=== PATIENT | female | born 1985 | race Caucasian/White ===

== ENCOUNTER → 2018-08-14 10:00 | Outpatient (CLI) | payer OTHER, SELFPAY ==
[2018-08-17 14:07] LABS: HPV Reflexed? NOT INDICATED
== END ==
PROVIDERS: Family Provider Physician Assistant; PCP Physician Assistant; Referring Provider Obstetrics & Gynecology; Visit Provider Obstetrics & Gynecology
DX: Z12.4 Encounter for screening for malignant neoplasm of cervix (principal)
CPT/HCPCS: 87624; 88175; G0145

== ENCOUNTER → 2020-08-24 09:10 | Outpatient (CLI) | payer OTHER, SELFPAY ==
[2020-08-30 16:46] LABS: HPV Reflexed? NOT INDICATED
== END ==
PROVIDERS: PCP Physician Assistant; Visit Provider Obstetrics & Gynecology
DX: Z01.419 Encounter for gynecological examination (general) (routine) without abnormal findings (principal); Z12.4 Encounter for screening for malignant neoplasm of cervix
CPT/HCPCS: 88175; G0145

== ENCOUNTER → 2023-03-26 | Outpatient (CLI) | payer OTHER, SELFPAY ==
[2023-03-26 11:58] LABS: Hematocrit 39.8 % (37-47); Hemoglobin 13.5 g/dL (12.0-15.0); Mean Corp Hgb Conc 33.9 g/dL (32-36); Mean Corpuscular Hgb 31.7 pg (27.0-32.0); Mean Corpuscular Volume 93.4 fL (81-99); Mean Platelet Vol. 9.3 fl (6.2-12.0); Platelet Count 338 K/mm3 (150-450); RBC Distribution Width CV 12.5 % (11.6-14.6); Red Blood Count 4.26 M/mm3 (4.2-5.4)
[2023-03-26 12:36] LABS: Progesterone Level 0.24 ng/mL (See Comment)
[2023-03-26 12:47] LABS: Follicle Stimulating Hormone 7.3 mIU/mL; Luteinizing Hormone 5.2 mIU/mL; T4 Free Direct 0.85 ng/dL (0.76-1.46); Thyroid Stim Hormone (TSH) 1.72 uIU/mL (0.358-3.74)
== END | disposition home or self-care (01) ==
LOC: WOBLAB 11:26
PROVIDERS: PCP Physician Assistant; Visit Provider Student in an Organized Health Care Education/Training Program
DX: N93.9 Abnormal uterine and vaginal bleeding, unspecified (principal)
CPT/HCPCS: 36415; 82670; 83001; 83002; 84144; 84146; 84439; 84443; 85027

== ENCOUNTER → 2023-03-27 | Outpatient (CLI) | payer OTHER, SELFPAY ==
--- NOTE | 2023-03-27 14:15 | EMB_PTH ---
PATIENT: MIKE MUÑIZ LOC: [facility] U#:[id number] AGE/SX: 38/F ROOM: RE03/27/[address]: Dr. Elana Kaur DO : 1985 BED: DIS: 03/27/2023 SPEC #: [id number] RECD: 03/28/23 08:39 STATUS: AGUSTIN REQ #: [id number] CATA: 03/27/23 14:[address]: Elana Kaur DEPT: SURGICAL PATHOLOGY RECD BY: Peace Silva ENTERED: 03/28/23 08:39 SP TYPE: ENDOM BX/C ERVIN DR: DONALD Rico Tissues: Endometrium, NOS Procedures: Surgery Specimen Level IV HEADER OPERATION: Endometrial biopsy PRE-OP DIAGNOSIS: Abnormal uterine bleeding N93.9 TISSUE SUBMITTED: Endometrial biopsy MICROSCOPIC DIAGNOSIS Endometrium, biopsy: Proliferative endometrium with focal glandular breakdown. AM:abhay 03/29/2023 MICROSCOPIC DESCRIPTION Slides are reviewed. GROSS DESCRIPTION Received in fixative is one container labeled with the patient's name and designated EMB. The specimen consists of multiple fragments of hemorrhagic mucoid tissue that in aggregate measure 1.5 x 1.5 x 0.2 cm. The specimen is totally submitted in one cassette. / SJ:abhay 03/28/2023 TC:5 CPT: 62068
== END | disposition home or self-care (01) ==
LOC: LABSPEC 14:27
PROVIDERS: PCP Physician Assistant; Visit Provider Student in an Organized Health Care Education/Training Program
DX: N93.9 Abnormal uterine and vaginal bleeding, unspecified (principal)
CPT/HCPCS: 88305

== ENCOUNTER → 2023-04-13 | Outpatient (CLI) | payer OTHER, SELFPAY ==
[2023-04-18 18:08] LABS: HPV APTIMA, High Risk Negative (Negative)
== END | disposition home or self-care (01) ==
LOC: LABSPEC 04-16 08:42
PROVIDERS: PCP Physician Assistant; Visit Provider Student in an Organized Health Care Education/Training Program
DX: N93.9 Abnormal uterine and vaginal bleeding, unspecified (principal)
CPT/HCPCS: 87624; 88175; G0145

== ENCOUNTER 2023-04-19 08:59 | Day surgery (SDC) | payer OTHER, SELFPAY ==
[2023-04-19] VITALS (7 sets, daily range): BP systolic 104–123; BP diastolic 58–77; PULSE 55–66; RESP 16; TEMP 36.1–36.8; O2SAT 98–100; BMI 22.9
--- NOTE | 2023-04-19 07:11 | PCM.HP.BLA ---
History and Physical Date of Admission: 04/19/23 HPI: 38-year-old female plan for hysteroscopy, dilation and curettage, endometrial ablation for abnormal uterine bleeding. Denies headache or vision changes, chest pain or shortness of breath, nausea or vomiting, diarrhea or constipation, fevers or chills. 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 Back surgery L5 2. LEEP Medications: denies Allergies: No known drug allergies Family history: Noncontributory Social history: Denies tobacco, alcohol, drug use Review of system: Negative otherwise stated above Physical exam: Blood pressure 108/58, HR 60, RR 16, Temp 98.2F, O2 saturation 99% on RA General: No acute distress HEENT: Normal cephalic/a traumatic, PERRLA Cardio: Regular rate and rhythm, no murmurs rubs or gallops Respiratory: No increased effort, clear to auscultation bilaterally Abdomen: Soft, nontender, nondistended Extremities: No edema Neurologic: Cranial nerves II through XII grossly intact, no focal deficits Musculoskeletal: Moves all extremities equally Assessment/plan: 38-year-old female plan for hysteroscopy, dilation and curettage, endometrial ablation for abnormal uterine bleeding. All risk, benefits, alternatives discussed with patient. Risk include but are not limited to: Risk of bleeding to the point of transfusion, infection, injury to surrounding tissue including bowel/bladder potentially requiring prolonged Fernandez catheter use/major abdominal vessels, VTE, ICU admission. Patient aware and consented. Partner has had vasectomy. Patient aware that it is not recommended to become after ablation due to risks of to fetus and mother related to abnormal placentation.
[2023-04-19 09:45] LABS: Internal QC Validated? YES +Cl - CLEAR BKGD; Pregnancy, Urine Negative Negative
[2023-04-19] MEDS: Lactated Ringers 1,000 ML 15 ML IV (10:00)
[2023-04-19 10:21] LABS: Hematocrit 39.6 % (37-47); Hemoglobin 13.3 g/dL (12.0-15.0); Mean Corp Hgb Conc 33.6 g/dL (32-36); Mean Corpuscular Hgb 31.4 pg (27.0-32.0); Mean Corpuscular Volume 93.6 fL (81-99); Mean Platelet Vol. 9.4 fl (6.2-12.0); Platelet Count 335 K/mm3 (150-450); RBC Distribution Width CV 12.1 % (11.6-14.6); RBC Distribution Width SD 41.8 fl (35.1-43.9); Red Blood Count 4.23 M/mm3 (4.2-5.4); White Blood Count 8.2 K/mm3 (4.4-11.0)
--- NOTE | 2023-04-19 10:40 | EMB_PTH ---
PATIENT: MIKE MUÑIZ LOC: [facility] U#:[id number] AGE/SX: 38/F ROOM: RE04/19/[address]: Dr. Elana Kaur DO : 1985 BED: DIS: 04/19/2023 SPEC #: [id number] RECD: 04/19/23 16:44 STATUS: AGUSTIN REQ #: [id number] CATA: 04/19/23 10:[address]: Elana Kaur DEPT: SURGICAL PATHOLOGY RECD BY: Peace Silva ENTERED: 04/20/23 07:46 SP TYPE: ENDOM BX/C ERVIN DR: DONALD Rico Tissues: Endometrium, NOS Procedures: Surgery Specimen Level IV HEADER OPERATION: Hysteroscopy, D & C Adriana PRE-OP DIAGNOSIS: Abnormal uterine bleeding TISSUE SUBMITTED: Endometrial curettings MICROSCOPIC DIAGNOSIS Endometrium, curettings: Secretory endometrium. AM:abhay 04/23/2023 MICROSCOPIC DESCRIPTION Slides are reviewed. GROSS DESCRIPTION Received in fixative is one container labeled with the patient's name and designated endometrial curettings. The specimen consists of multiple irregular fragments of light reddy soft tissue that in aggregate measure 3.0 x 2.5 x 0.3 cm. The specimen is totally submitted in one cassette. / SJ:abhay 04/20/2023 TC:5 CPT: 22206
--- NOTE | 2023-04-19 10:51 | PCM.OPRPT ---
Report of Operation Date of Procedure: 04/19/23 Pre-Operative Diagnosis: Abnormal uterine bleeding Post-Operative Diagnosis: Abnormal uterine bleeding Surgery/Procedure Performed:: Hysteroscopy, dilation curettage, endometrial ablation with Adriana Description of Surgical Findings:: Normal-appearing external genitalia. Normal-appearing cervix. Thickened endometrial lining without polyps or fibroids. Surgeon: Elana Kaur Type of Anesthesia: MAC Specimen's removed: Endometrial curettings Estimated Blood Loss (mL): 5 cc Fluids Replaced: 800 cc Description of Procedure: Indication/risk/benefits: 38-year-old female plan for hysteroscopy, dilation and curettage, endometrial ablation for abnormal uterine bleeding. All risk, benefits, alternatives discussed with patient. Risk include but are not limited to: Risk of bleeding to the point of transfusion, infection, injury to surrounding tissue including bowel/bladder potentially requiring prolonged Fernandez catheter use/major abdominal vessels, VTE, ICU admission. Patient aware and consented. Partner has had vasectomy. Patient aware that it is not recommended to become after ablation due to risks of to fetus and mother related to abnormal placentatio Procedure: Patient taken to the operating room MAC anesthesia induced. Patient placed in the dorsal lithotomy position prepped and draped in the usual sterile fashion. Weighted speculum placed in posterior vagina and Rivas retractor used anteriorly to visualize cervix. Anterior lip of the cervix grasped with Allis clamp. Cervix sequentially dilated. Hysteroscopy completed. Hysteroscope placed through the cervical canal and inspection of the endometrial cavity completed with findings noted above. Endometrial curettage completed in a 360 degree manner. Cavity length 5 cm. Adriana device opened and placed. Passed cavity assessments. Error code 006 with the first Adriana device, and again after removing and replacing. New device received and placed. Same error code. Adriana rep discussed with supervisor [employer], cavity length then set to 4.5 cm, passed all cavity assessments. Ablation completed. Device removed. Allis clamp removed. Cervix hemostatic. Weighted speculum removed. At the end of the procedure all needle, lap, sponge counts were correct. Urine output: 350 cc clear yellow urine Complications None
--- NOTE | 2023-04-19 10:52 | DCINST_ITS ---
Discharge Instructions Diet Discharge Diet: No restrictions Activity Discharge Activity: Return to Normal Activity and May Shower May resume sexual activity in: 2 weeks Weight Bearing Status: Weight bearing as tolerated Lifting Restrictions: None Dressing / Incision Call your doctor if you observe: Fever of 101 or Higher, Change in Color, Inability to urinate, Using more than 1 pad per hour, Shortness of breath, Dizziness, Swelling in the ankles, Chest pain and Calf discomfort Follow Up Care Please Follow Up With: Elana Kaur DO When: 1-2 week postoperative visit Test Results: Test results from this visit will be discussed in further detail at your follow- up appointment, if applicable. Discharge Plan Admission Primary Reason for Your Visit: Ablation Attending Provider: Elana Kaur Primary Care Provider: Madisyn Oro Discharge Orders/Prescriptions Prescriptions: No Action NK Referrals / Follow Up: Madisyn Oro PA [Primary Care Provider] - Disposition Disposition (needs filled in before D/C Order can be placed): Home, Self Care
[2023-04-19] MEDS: HYDROcodone Bitartrate/Apap 5/325 Tablet PO (12:56)
== END 2023-04-19 13:16 | disposition home or self-care (01) ==
LOC: SDC 09:03 → AC 09:10
PROVIDERS: Anesthesiology; PCP Physician Assistant; Referring Provider Student in an Organized Health Care Education/Training Program; Visit Provider Student in an Organized Health Care Education/Training Program
PROC: 0U5B8ZZ Destruction of Endometrium, Via Natural or Artificial Opening Endoscopic (ICD-10-PCS; CPT 58558; principal; 2023-04-19 10:25)
DX: N93.9 Abnormal uterine and vaginal bleeding, unspecified (principal)
CPT/HCPCS: 58563; 00952; 81025; 85027; 86850; 86900; 86901; 88305; J7120; J2405